=== PATIENT | male | born 1985 ===

== ENCOUNTER 2018-01-11 03:58 | Emergency (ER) | payer MEDICAID ==
[2018-01-11 04:13] VITALS: PULSE 76; O2SAT 100
[2018-01-11] MEDS ORDERED: Tobramycin/Dexamethasone (Tobradex) Opth Sol (2.5 ml) OD STA (04:26)
[2018-01-11] MEDS ORDERED: Amoxicillin-Clav 875-125 mg Tab PO STA ×2 (04:30→04:35)
--- NOTE | 2018-01-11 04:43 | ED PDOC ---
Arrival/HPI <Jonathon Orr - Last Filed: 01/11/18 05:17> - History of Present Illness Time/Duration: 4-6 hours Symptom Onset: Gradual Symptom Course: Unchanged Activities at Onset: Rest <Lul Knight - Last Filed: 01/11/18 05:27> - General Chief Complaint: Eye Problem Time Seen by Provider: 01/11/18 04:02 - History of Present Illness Narrative History of Present Illness (Text): 01/11/18 04:37 PGY-[address] Orr Mr. Johnson is a 32 year old male who presents to the ED with a pruritic right eye. He states that he noticed his eye to be red and itchy after returning from work this evening and came to ED because it his eye became more red and he began to notice a small amount of puss around the eye. Patient does not recall any trauma to the eye, denies having any allergies, denies any fevers or chills. (Lul Knight) Past Medical History - Provider Review Nursing Documentation Reviewed: Yes - Infectious Disease Hx of Infectious Diseases: None - Cardiac Hx Cardiac Disorders: No - Psychiatric Hx Substance Use: No - Anesthesia Hx Anesthesia: No <Lul Knight - Last Filed: 01/11/18 05:27> Family/Social History - Physician Review Nursing Documentation Reviewed: Yes Family/Social History: No Known Family HX Smoking Status: Never Smoked Hx Alcohol Use: No Hx Substance Use: No <Lul Knight - Last Filed: 01/11/18 05:27> Allergies/Home Meds <Jonathon Orr - Last Filed: 01/11/18 05:17> <Lul Knight - Last Filed: 01/11/18 05:27> Allergies/Adverse Reactions: Allergies No Known Allergies Allergy (Verified 01/11/18 04:09) Review of Systems - Review of Systems Constitutional: Normal. absent: Fatigue, Weight Change, Fevers Eyes: Eye Pain (+mild pain on R eye/eyelid), Other (+pruritic R eye). absent: Vision Changes, Photophobia ENT: Normal. absent: Sore Throat, Rhinorrhea Respiratory: Normal. absent: SOB, Cough Cardiovascular: Normal. absent: Chest Pain, Palpitations Gastrointestinal: Normal. absent: Abdominal Pain, Constipation, Diarrhea, Nausea, Vomiting Musculoskeletal: Normal. absent: Back Pain, Neck Pain Skin: Pruritis (+pruritic R eye). absent: Rash, Skin Lesions, Laceration Neurological: Normal. absent: Headache, Dizziness Psychiatric: Normal. absent: Anxiety, Depression <Lul Knight - Last Filed: 01/11/18 05:27> Physical Exam <Jonathon Orr - Last Filed: 01/11/18 05:17> Vital Signs Reviewed: Yes Temperature: Afebrile Blood Pressure: Normal Pulse: Regular Respiratory Rate: Normal Appearance: Positive for: Non-Toxic Pain Distress: Mild Mental Status: Positive for: Alert and Oriented X 3 - Systems Exam Head: Present: Atraumatic, Normocephalic Pupils: Present: PERRL Extroacular Muscles: Present: EOMI Conjunctiva: Present: Injected, Other (+mild erythema of surrounding eyelid and small amount of prurulent discharge present). No: Icteric Mouth: Present: Moist Mucous Membranes Pharnyx: Present: Normal. No: ERYTHEMA, EXUDATE Nose (External): Present: Atraumatic Neck: Present: Normal Range of Motion. No: JVD Respiratory/Chest: Present: Clear to Auscultation, Good Air Exchange. No: Respiratory Distress, Accessory Muscle Use Cardiovascular: Present: Regular Rate and Rhythm, Normal S1, S2. No: Murmurs Abdomen: Present: Normal Bowel Sounds. No: Tenderness, Distention, Peritoneal Signs, Rebound, Guarding Upper Extremity: Present: Normal Inspection. No: Cyanosis, Edema Lower Extremity: Present: Normal Inspection, NORMAL PULSES. No: Edema Neurological: Present: GCS=15, CN II-XII Intact Skin: Present: Warm, Dry, Normal Color. No: Rashes Psychiatric: Present: Alert, Oriented x 3 <Lul Knight - Last Filed: 01/11/18 05:27> - Physical Exam Narrative Physical Exam (Text): 01/11/18 05:27 Visual acuity test performed: 20/20 vision in both eyes (Lul Knight) Vital Signs Temp Pulse Resp BP Pulse Ox 01/11/18 04:13 98.5 F 76 18 124/81 100 Medical Decision Making <Jonathon Orr - Last Filed: 01/11/18 05:17> <Lul Knight - Last Filed: 08/12/18 05:27> ED Course and Treatment: Impression: Pt seen and evaluated with medical education specialist. Aware and agree with HPI, clinical findings, plan, and management. Pt presented complaining of pruritic and discharge from right eye. Plan: -- Augmentin -- Tobrex -- Reassess and disposition (Jonathon Orr) Acute Conjunctivitis * Tobramycin 0.3% 1-2 gtt Q6 * Augmentin 875/125 po BID (Lul Knight) - Medication Orders Current Medication Orders: Discontinued Medications Amoxicillin/Clavulanate Potassium (Augmentin 875 Mg-125 Mg Tab) 1 tab PO STAT STA PRN Reason: Protocol Stop: 01/11/18 04:36 Last Admin: 01/11/18 04:53 Dose: 1 tab Tobramycin/Dexamethasone (Tobradex Opht Susp) 0 ml OD STAT STA Stop: 01/11/18 04:27 Last Admin: 01/11/18 04:52 Dose: 1 drop - PA / ACCOUNTS RECEIVABLE ASSISTANT / Resident Statement / has reviewed & agrees with the documentation as recorded. / has examined the patient and agrees with the treatment plan. <Jonathon Orr - Last Filed: 01/11/18 05:17> Disposition/Present on Arrival <Jonathon Orr - Last Filed: 01/11/18 05:17> - Present on Arrival Any Indicators Present on Arrival: No History of DVT/PE: No History of Uncontrolled Diabetes: No Urinary Catheter: No History of Decub. Ulcer: No History Surgical Site Infection Following: None - Disposition Have Diagnosis and Disposition been Completed?: Yes Disposition Time: 05:25 Patient Plan: Discharge <Lul Knight - Last Filed: 01/11/18 05:27> - Disposition Diagnosis: Conjunctivitis Disposition: HOME/ ROUTINE Condition: IMPROVED Discharge Instructions (ExitCare): Conjunctivitis ([place]) (DC) Prescriptions: Amoxicillin/Clavulanate [Augmentin 875 MG-125 MG] 1 tab PO BID 7 Days #14 tab Tobramycin 0.3% [Tobrex 0.3% Ophth Soln] 2 drop OD QID #1 bottle Referrals: Celestine Boswell APN [Primary Care Provider] - Follow up with primary Roman Jiménez [Staff Provider] - Follow up with primary Forms: [employer] (Azeri)
[2018-01-11 05:46] VITALS: BP 128/72; RESP 16; TEMP 98.1
== END 2018-01-11 05:46 | disposition home or self-care (01) ==
LOC: ED 03:58
DX: H10.9 Unspecified conjunctivitis (principal)